=== PATIENT | female | born 1990 | race African-American/Black ===

== ENCOUNTER 2018-12-11 06:03 | Inpatient (IN) ==
[2018-12-11] MEDS ORDERED: FAMOTIDINE 20 MG/2 ML VIAL IV PRN (06:14)
[2018-12-11] MEDS ORDERED: CITRIC ACID/SODIUM CITRATE 30 ML UDCUP PO PRN (06:14)
[2018-12-11] MEDS ORDERED: ceFAZolin 2,000 MG in PREMIX 1 EACH IV PRN (06:14)
[2018-12-11] MEDS ORDERED: OXYTOCIN/LR 20 UNIT/1,000 ML BAG IV PRN (06:16)
[2018-12-11] MEDS: LACTATED RINGERS 1,000 ML IV SCH ×2 (06:35→07:49)
[2018-12-11 06:41] LABS: Basophils % 0.5 % (0.0-0.8); Eosinophils # 0.1 10*3/uL (0.0-0.87); Eosinophils % 0.8 % (0.00-10.9); Hematocrit 31.7 VOL% (35.7-47.0); Hemoglobin 9.9 GM/DL (12.0-16.0); Immature Granulocytes % 0.8 %; Immature Granulocytes Absolute 0.05 #; Lymphocytes % 30.3 % (21.3-54.2); Mean Corpuscular HGB Conc 31.2 GM/DL (32-36); Mean Corpuscular Volume 78.1 FL (87-102); Mean Platelet Volume 10.5 FL (9.6-12.0); Monocytes % 10.7 % (1.7-12.7); Neutrophils % 56.9 % (38.7-73.9); Platelet Count 163 T/CUMM (130-400); Red Blood Count 4.06 MC/CUMM (3.8-5.5); Red Cell Distribution Width 15.5 % (9.3-17.3); White Blood Count 6.6 T/CUMM (4-12)
[2018-12-11] MEDS ORDERED: miSOPROStol 200 MCG TABLET ONE (06:58)
[2018-12-11] MEDS ORDERED: CARBOPROST TROMETHAMINE 250 MCG/ML AMP IM ONE (06:58)
[2018-12-11] MEDS ORDERED: METHYLERGONOVINE 0.2 MG/1 ML AMP ONE (06:58)
[2018-12-11 06:59] LABS: Alanine Aminotransferase 12 U/L (13-56); Albumin 2.6 G/DL (3.4-5.0); Alkaline Phosphatase 170 U/L (45-117); Aspartate Amino Transferase 19 U/L (0-37); Bilirubin,Total < 0.39 MG/DL (0.2-1.0); Blood Urea Nitrogen 5 MG/DL (7-18); Calcium 8.3 MG/DL (8.5-10.1); Glucose 76 MG/DL (74-106); Osmolality,Calculated 272.5 MOS/KG (273-304); Total Protein 6.9 G/DL (6.4-8.3)
[2018-12-11 07:01] LABS: INR 0.9; PT Patient Result 9.8 SECS (9.6-12.2); Partial Thromboplastin Time 25.1 SECS (20.8-36.0)
[2018-12-11 09:08] LABS: Cord Venous Blood HCO3 22.9 MMOL/L; Cord Venous Blood PCO2 45.9 MMHG; Cord Venous Blood PO2 22.6
[2018-12-11 09:12] LABS: Bilirubin,Direct < 0.100 MG/DL (0.0-0.20)
[2018-12-11 09:13] LABS: Apearance,Urine CLEAR (Clear); Bacteria,Urine Occasional /HPF (Few); Bilirubin,Urine Negative (Negative); Blood, Urine Negative (Negative); Glucose,Urine (UA) Negative (Negative); Ketones,Urine Negative (Negative); Nitrite,Urine Negative (Negative); Protein,Urine Negative; Urine Color Colorless (Yellow); Urine Specific Gravity 1.002 (1.001-1.035); Urine Urobilinogen < 2.0 EU/DL (0.2-1.0); WBC,Urine <1 /HPF (0-6)
[2018-12-11] MEDS ORDERED: TISSUE ADHESIVE 1 EACH APPLICATOR TOP ONE (09:27)
[2018-12-11] MEDS ORDERED: METOCLOPRAMIDE 10 MG/2 ML VIAL ONE (10:29)
[2018-12-11] MEDS ORDERED: EPINEPHrine 1 MG/ML VIAL ONE (10:29)
[2018-12-11] MEDS ORDERED: BUPIVACAINE 0.5% 50 ML VIAL ONE (10:29)
[2018-12-11] MEDS ORDERED: ONDANSETRON 4 MG/2 ML VIAL ONE (10:29)
[2018-12-11] MEDS ORDERED: PROPOFOL 200 MG/20 ML VIAL IV ONE (10:29)
[2018-12-11] MEDS ORDERED: DEXAMETHASONE 4 MG/1 ML VIAL ONE (10:29)
[2018-12-11] MEDS ORDERED: MORPHINE 10 MG/10 ML VIAL ONE (10:29)
[2018-12-11] MEDS ORDERED: BISACODYL 10 MG SUPP RECTAL PRN (12:42)
[2018-12-11] MEDS ORDERED: HYDROCORTISONE 2.5% RECTAL CREAM 30 GM TUBE TOP PRN (12:42)
[2018-12-11] MEDS ORDERED: LANOLIN 50% CREAM 0.3 OZ TUBE TOP PRN (12:42)
[2018-12-11] MEDS ORDERED: RHO(D) IMMUNE GLOBULIN 300 MCG SYRINGE IM ONE (12:42)
[2018-12-11] MEDS ORDERED: ONDANSETRON 4 MG/2 ML VIAL IV PRN (12:42)
[2018-12-11] MEDS ORDERED: BENZOCAINE 20%/MENTHOL 0.5% SPRAY 56 GM CAN TOP PRN (12:42)
[2018-12-11] MEDS ORDERED: WITCH HAZEL PADS 100/JAR TOP PRN (12:42)
[2018-12-11] MEDS ORDERED: DIPH/TET/ACEL PERT BOOSTER VACCINE 0.5 ML VIAL IM ONE (12:42)
[2018-12-11] MEDS ORDERED: OXYTOCIN/LR 20 UNIT/1,000 ML BAG IV ONE (12:42)
[2018-12-11] MEDS ORDERED: MEASLES/MUMPS/RUBELLA VACCINE 0.5 ML VIAL SUBCUT ONE (12:42)
[2018-12-11] MEDS: ceFAZolin 1,000 MG in SYRINGE 1 EACH IV SCH (15:49)
[2018-12-11] MEDS: oxyCODONE/ACETAMINOPHEN 5-325 MG TABLET PO PRN (17:53)
[2018-12-11] MEDS: IBUPROFEN 800 MG TABLET PO PRN (21:27)
[2018-12-12] MEDS: ceFAZolin 1,000 MG in SYRINGE 1 EACH IV SCH (00:18)
[2018-12-12] MEDS: oxyCODONE/ACETAMINOPHEN 5-325 MG TABLET PO PRN ×4 (00:27→19:26)
[2018-12-12 05:48] LABS: Basophils % 0.2 % (0.0-0.8); Hematocrit 22.5 VOL% (35.7-47.0); Hemoglobin 7.1 GM/DL (12.0-16.0); Immature Granulocytes % 0.9 %; Immature Granulocytes Absolute 0.11 #; Lymphocytes # 1.1 10*3/uL (1.4-4.0); Lymphocytes % 8.9 % (21.3-54.2); Mean Corpuscular HGB Conc 31.6 GM/DL (32-36); Mean Corpuscular Volume 78.4 FL (87-102); Mean Platelet Volume 10.4 FL (9.6-12.0); Monocytes % 9.2 % (1.7-12.7); Neutrophils % 80.8 % (38.7-73.9); Platelet Count 140 T/CUMM (130-400); Red Blood Count 2.87 MC/CUMM (3.8-5.5); Red Cell Distribution Width 15.5 % (9.3-17.3); White Blood Count 12.8 T/CUMM (4-12)
[2018-12-12] MEDS: DOCUSATE SODIUM 100 MG CAPSULE PO SCH ×3 (09:57→22:35)
[2018-12-12] MEDS: FERROUS SULFATE 325 MG TABLET PO SCH ×3 (09:58→22:35)
[2018-12-12 12:15] LABS: Basophils % 0.1 % (0.0-0.8); Eosinophils % 0.1 % (0.00-10.9); Hematocrit 23.2 VOL% (35.7-47.0); Hemoglobin 7.3 GM/DL (12.0-16.0); Immature Granulocytes % 0.6 %; Immature Granulocytes Absolute 0.08 #; Lymphocytes # 1.5 10*3/uL (1.4-4.0); Lymphocytes % 11.4 % (21.3-54.2); Mean Corpuscular HGB Conc 31.5 GM/DL (32-36); Mean Corpuscular Volume 78.4 FL (87-102); Mean Platelet Volume 10.2 FL (9.6-12.0); Monocytes % 7.9 % (1.7-12.7); Neutrophils % 79.9 % (38.7-73.9); Platelet Count 159 T/CUMM (130-400); Red Blood Count 2.96 MC/CUMM (3.8-5.5); Red Cell Distribution Width 15.7 % (9.3-17.3)
[2018-12-12] MEDS: IBUPROFEN 800 MG TABLET PO PRN (18:05)
[2018-12-12] MEDS: MAGNESIUM HYDROXIDE SUSP 30 ML UDCUP PO PRN (18:05)
[2018-12-12] MEDS: SIMETHICONE CHEW 80 MG TABLET PO PRN (19:30)
[2018-12-13] MEDS: IBUPROFEN 800 MG TABLET PO PRN ×2 (00:17→09:09)
[2018-12-13] MEDS: oxyCODONE/ACETAMINOPHEN 5-325 MG TABLET PO PRN ×2 (01:24→09:10)
[2018-12-13] MEDS: SIMETHICONE CHEW 80 MG TABLET PO PRN ×2 (01:24→09:11)
[2018-12-13] MEDS: FERROUS SULFATE 325 MG TABLET PO SCH (09:11)
[2018-12-13] MEDS: DOCUSATE SODIUM 100 MG CAPSULE PO SCH (09:11)
[2018-12-13] MEDS: MAGNESIUM HYDROXIDE SUSP 30 ML UDCUP PO PRN (09:11)
[2018-12-13 12:19] VITALS: BP 115/66
== END 2018-12-13 11:45 | disposition home or self-care (01) | DRG 785 ==
LOC: N.LD 06:03 → N.OB 12:38
PROVIDERS: ADMIT Obstetrics & Gynecology; ATTEND Obstetrics & Gynecology